=== PATIENT | female | born 1985 | race Caucasian/White ===

== ENCOUNTER 2017-07-24 15:54 | Emergency (ER) | payer SELFPAY ==
[~2017-07-24] VITALS: Ht 170.2 cm; Wt 63.5 kg
[2017-07-24 16:50] VITALS: BP 102/63
[2017-07-24] MEDS ORDERED: PROMETHAZINE-D118 ML ORAL (18:03)
[2017-07-24] MEDS ORDERED: IBUPROFEN600 MG ORAL (18:03)
[2017-07-24] MEDS ORDERED: TAMIFLU75 MG ORAL (18:03)
[2017-07-24 18:49] VITALS: BP 102/63
--- NOTE | 2017-07-24 21:26 | Emergency Room Report ---
History of Present Illness General Chief Complaint: Headache Source: Patient Present Illness HPI The patient is a 31-year-old female presenting for fatigue, headache, myalgia, fever, and cough for the past 2 days. She denies any recent travel. She admits to sick contact who is her daughter has same symptoms. Pain is a 7/10 dull ache. She has tried Tylenol at home which temporarily helps. She has not had shot this year. She denies any other symptoms Allergies: Coded Allergies: No Known Allergies (Unverified , 07/24/17) Patient History Past Medical History: see triage record Pertinent Family History: none Last Menstrual Period: 07/10/17 Now: No Reviewed Nursing Documentation: PMH: Agreed, PSxH: Agreed Nursing Documentation-PMH Past Medical History: No Stated History Review of Systems All Other Systems: negative except mentioned in HPI Physical Exam Vital Signs Date Time Temp Pulse Resp B/P (MAP) Pulse Ox O2 Delivery O2 Flow Rate FiO2 07/24/17 16:16 102.2 115 16 102/63 97 Room Air Sp02 EP Interpretation: reviewed, normal General Appearance: no apparent distress, alert, GCS 15, non-toxic, lethargic Head: normocephalic, atraumatic Eyes: bilateral eye normal inspection, bilateral eye PERRL ENT: hearing grossly normal, no angioedema, normal voice, pharyngeal erythema Neck: full range of motion, supple/symm/no masses Respiratory: chest non-tender, lungs clear, normal breath sounds, speaking full sentences Cardiovascular #1: no edema, tachycardia Gastrointestinal: normal bowel sounds, non tender, soft, non-distended, no guarding, no rebound Genitourinary: normal inspection, no CVA tenderness Musculoskeletal: back normal, gait/station normal, normal range of motion, non- tender Neurologic: alert, oriented x3, responsive, motor strength/tone normal, sensory intact, speech normal Psychiatric: judgement/insight normal, memory normal, mood/affect normal, no suicidal/homicidal ideation Skin: normal color, no rash, warm/dry, well hydrated Lymphatic: no adenopathy Medical Decision Making PA Attestation Dr. Mckeon is my supervising physician. Patient management was discussed with my supervising physician Diagnostic Impression: Primary Impression: Influenza ER Course The patient is a 31-year-old female presenting for fatigue, headache, myalgia, fever, and cough for the past 2 days. Differential diagnosis include but not limited to influenza, pharyngitis, sinusitis, AOM, bronchitis, PNA PE: Febrile. Lethargic. NAD HEENT exam reveals pharyngeal erythema. No tonsillar edema or exudate Lungs are clear to auscultation bilaterally Skin warm dry. Influenza neg She is with her daughter who is also being seen. Daughter tested + for influenza A The patient be treated with cough medication, Motrin, and Tamiflu. ER precautions given Microbiology Date/Time Source Procedure Growth Status 07/24/17 16:14 Nasal Nares Influenza Types A,B Antigen (THIERRY) - Final Complete Lab Results Impression negative Last Vital Signs Date Time Temp Pulse Resp B/P (MAP) Pulse Ox O2 Delivery O2 Flow Rate FiO2 07/24/17 18:49 100.7 16 102/63 97 Room Air 07/24/17 16:16 115 Status: improved Disposition: HOME, SELF-CARE Condition: Improved Scripts Oseltamivir Phosphate (Tamiflu) 75 Mg Capsule 75 MG ORAL TWICE A DAY, #10 CAP Prov: HAIM CLINE.A. 07/24/17 D-Methorphan Hb/Prometh Hcl* (PROMETHAZINE-DM SYRUP*) 118 Ml Syrup 5 ML ORAL Q6H Y for For Cough, #118 ML 0 Refills Prov: HAIM CLINE P.A. 07/24/17 Ibuprofen* (MOTRIN*) 600 Mg Tablet 600 MG ORAL Q8H Y for For Pain, #30 TAB 0 Refills Prov: HAIM CLINE P.A. 07/24/17 Patient Instructions: Influenza, Adult Additional Instructions: I discussed my findings with the patient. All questions and concerns have been answered. Treatment and medication compliance have been addressed. I advised the patient that they need to follow up with PMD in 3-5 days. Return to ED if symptoms worsen, new symptoms arise, or if needed for any reason. Patient verbalized understanding of discharge instructions. HAIM CLINE Jul 24, 2017 21:26
== END 2017-07-24 18:50 | disposition home or self-care (01) ==
LOC: EMR 16:54
DX: J11.1 Influenza due to unidentified influenza virus with other respiratory manifestations (principal)
CPT/HCPCS: 86710; 99284

== ENCOUNTER 2019-10-07 12:21 | Emergency (ER) | payer MEDICAID, OTHER ==
[~2019-10-07] VITALS: Ht 167.6 cm; Wt 65.8 kg
[~2019-10-07 12:21] MED LIST: IBUPROFEN600 MG ORAL; PROMETHAZINE-D118 ML ORAL; TAMIFLU75 MG ORAL
--- NOTE | 2019-10-07 12:30 | NUR ---
ED Nurse Note: Pt ambulated to ed c/o cold x 1 week; sore throat/cough/congestion. pt denies recent travel. Placed on bed.
[2019-10-07 12:36] VITALS: BP 120/76
--- NOTE | 2019-10-07 13:33 | Emergency Room Report ---
History of Present Illness General Chief Complaint: Sore Throat Source: Patient Present Illness HPI 34-year-old female presents to the emergency department complaining of persistent chest congestion and cough x1 week. Patient denies pain she reports she initially had upper respiratory-like symptoms with sore throat, fatigue, runny nose and cough. Patient states after 1 day all her other symptoms resolved however she continues to have a cough persistently. Patient states she has been taking ojjd-jut-rsexguf Robitussin-DM with no relief of her symptoms. She denies fevers or chills. She denies recent travel. She denies contact with persons whom have tested positive or are under investigation for COVID-19. She denies hx of asthma or COPD. She denies smoking hx. Allergies: Coded Allergies: No Known Allergies (Unverified , 07/24/17) Patient History Past Medical History: see triage record Past Surgical History: none Pertinent Family History: none Last Menstrual Period: 09/23/2019 Now: No Reviewed Nursing Documentation: PMH: Agreed; PSxH: Agreed Nursing Documentation-PMH Past Medical History: No Stated History Review of Systems All Other Systems: negative except mentioned in HPI Physical Exam Vital Signs Date Time Temp Pulse Resp B/P (MAP) Pulse Ox O2 Delivery O2 Flow Rate FiO2 10/07/19 12:28 98.4 74 16 120/76 (91) 100 Room Air Sp02 EP Interpretation: reviewed, normal General Appearance: no apparent distress, alert, GCS 15, non-toxic Head: normocephalic, atraumatic Eyes: bilateral eye normal inspection, bilateral eye PERRL ENT: hearing grossly normal, normal pharynx, normal voice, TMs + canals normal , uvula midline, moist mucus membranes Neck: full range of motion, no meningismus Respiratory: chest non-tender, lungs clear, normal breath sounds, no respiratory distress, no wheezing, speaking full sentences Cardiovascular #1: regular rate, rhythm Musculoskeletal: normal range of motion, gait/station normal, non-tender Neurologic: alert, motor strength/tone normal, oriented x3, sensory intact, responsive, speech normal Psychiatric: judgement/insight normal Skin: no rash, normal color Lymphatic: no adenopathy Medical Decision Making PA Attestation Dr. Miller Is my supervising Physician whom patient management has been discussed with. Diagnostic Impression: Primary Impression: Viral URI with cough ER Course 34-year-old female presents to the emergency department complaining of persistent chest congestion and cough x1 week. Patient denies pain she reports she initially had upper respiratory-like symptoms with sore throat, fatigue, runny nose and cough. Patient states after 1 day all her other symptoms resolved however she continues to have a cough persistently. Patient states she has been taking [id number] Robitussin-DM with no relief of her symptoms. She denies fevers or chills. She denies recent travel. She denies contact with persons whom have tested positive or are under investigation for COVID-19. She denies hx of asthma or COPD. She denies smoking hx. Ddx considered but are not limited to URI, pneumonia, PE, strep pharyngitis, meningitis. Vital signs: Pt.is afebrile VS are WNL H&PE are most consistent with bronchitis ORDERS: none required at this time, the diagnosis is clinical ED INTERVENTIONS: None required at this time. DISCHARGE: At this time pt. is stable for d/c to home. Will provide printed patient care instructions, and any necessary prescriptions. Care plan and follow up instructions have been discussed with the patient prior to discharge. Last Vital Signs Date Time Temp Pulse Resp B/P (MAP) Pulse Ox O2 Delivery O2 Flow Rate FiO2 10/07/19 12:36 98.4 16 120/76 100 Room Air 10/07/19 12:28 74 Disposition: HOME, SELF-CARE Condition: Stable Referrals: [facility] + [facility] Patient Instructions: Cough, Adult, [id number] Additional Instructions: Take medications as directed. !! Do not drink alcohol, drive, or operate heavy machinery while taking Cough Syrup as this may cause drowsiness. Follow up with a Primary Care Provider in 3-5 days, even if your symptoms have resolved. --Please review list of primary care clinics, if you do not already have a primary care provider Return sooner to ED if new symptoms occur, or current symptoms become worse. - Please note that this Emergency Department Report was dictated using [employer] efficient aircraft designer technology software, occasionally this can lead to erroneous entry secondary to interpretation by the dictation equipment. Amanda Vogel Oct 07, 2019 13:33
[2019-10-07] MEDS ORDERED: MUCINEX1200 MG PO (13:35)
[2019-10-07] MEDS ORDERED: IBUPROFEN600 MG ORAL (13:35)
[2019-10-07] MEDS ORDERED: PROMETHAZINE-C118 M1 ORAL (13:35)
[2019-10-07 13:43] VITALS: BP 120/76
--- NOTE | 2019-10-07 13:43 | NUR ---
ER DISCHARGE NOTE: Patient is cleared to be discharged per ERMD, pt is aox4, on room air, with stable vital signs. pt was given dc and prescription instructions, pt was able to verbalize understanding, pt id band removed. pt is able to ambulate with steady gait. pt took all belongings.
== END 2019-10-07 13:43 | disposition home or self-care (01) ==
LOC: EMR 13:39
DX: J06.9 Acute upper respiratory infection, unspecified (principal)
CPT/HCPCS: 81025; Z7502; 99282